=== PATIENT | male | born 1975 | race African-American/Black ===

== ENCOUNTER 2016-12-20 05:40 | Emergency (ER) | payer BC ==
[~2016-12-20 05:40] MED LIST: FLEXERIL PO; IBUPROFEN PO; PRILOSEC20 M1 PO
[2016-12-20 06:43] LABS: INFLUENZA A NEG (NEG); INFLUENZA B NEG (NEG)
== END 2016-12-20 06:48 | disposition home or self-care (01) ==
LOC: CED 05:40
PROVIDERS: Nurse Practitioner
DX: J30.2 Other seasonal allergic rhinitis (principal)
CPT/HCPCS: 87651; 87804; 99282